=== PATIENT | male | born 1950 | race Caucasian/White ===

== ENCOUNTER → 2019-07-01 | Outpatient (CLI) | payer OTHER ==
[~2019-07-01] MED LIST: IOHEXOL 350 MG/ML 100ML IJ ONE; METOPROLOL TARTRATE 1MG/1ML-5ML VIAL IV ONE; NITROGLYCERIN 0.4 MG SL TAB SL ONE
== END | disposition home or self-care (01) ==
LOC: CT 08:33
PROVIDERS: ATTEND Specialist
DX: I25.10 Atherosclerotic heart disease of native coronary artery without angina pectoris (principal)
CPT/HCPCS: 75571; 75574; Q9967

== ENCOUNTER 2023-11-05 07:56 | Day surgery (SDC) | payer OTHER ==
[~2023-11-05] VITALS: Ht 175.3 cm; Wt 115.7 kg
[~2023-11-05 07:56] MED LIST changes: +ASPI-543 PO; +BOSW1TAB3 PO; +COEN200C25 PO; +CRAN1CHW3 PO; +DIPH1TAB30 PO; +ESCI1TAB37 PO; -IOHEXOL 350 MG/ML 100ML IJ ONE; +LEVO25TA6 PO; +LOSA-533 PO; +MECL-90 PO; +METF-370 PO; +METO25TA93 PO; -METOPROLOL TARTRATE 1MG/1ML-5ML VIAL IV ONE; +MISC1CAP PO; +MULT-688 PO; -NITROGLYCERIN 0.4 MG SL TAB SL ONE; +OMEG-89 PO; +ROSU20TA14 PO; +TAMS0.4C36 PO
[2023-11-05] MEDS: fentaNYL CITRATE 100 MCG/2 ML VL IV ONE (08:45)
[2023-11-05] MEDS: MIDAZOLAM HCL 2MG/2ML 2ml VIAL (1mg/ml) IV ONE (08:45)
[2023-11-05] MEDS ORDERED: MIDAZOLAM HCL 5 MG/ML-1ML VIAL IV ONE (08:45)
[2023-11-05] MEDS: LIDOCAINE VISCOUS 2% 15ML UD PO ONE (08:45)
[2023-11-05] MEDS: MIDAZOLAM HCL 2MG/2ML 2ml VIAL (1mg/ml) ONE (08:47)
[2023-11-05] MEDS: ONDANSETRON HCL 4 MG/2 ML VIAL ONE (08:50)
== END 2023-11-05 10:24 | disposition home or self-care (01) ==
LOC: CATH 07:56
PROVIDERS: ATTEND Internal Medicine
DX: R93.1 Abnormal findings on diagnostic imaging of heart and coronary circulation (principal); I08.1 Rheumatic disorders of both mitral and tricuspid valves; I10 Essential (primary) hypertension; F12.90 Cannabis use, unspecified, uncomplicated; Z79.82 Long term (current) use of aspirin; Z79.84 Long term (current) use of oral hypoglycemic drugs; Z79.899 Other long term (current) drug therapy; Z87.891 Personal history of nicotine dependence
CPT/HCPCS: 93312; 93325; J2250; J3010; J7030; 93306; 99152; J2405